=== PATIENT | female | born 2000 | race Caucasian/White ===

== ENCOUNTER 2024-06-10 18:16 | Inpatient (IN) ==
[2024-06-10] MEDS: Lactated Ringers 1000 ml BAG 1,000 ML IV ONE ×2 (19:27→23:11)
[2024-06-10 19:28] LABS: Hematocrit 52.8 % (35-45); Hemoglobin 16.9 g/dL (11.5-14.3); Mean Corpuscular Volume 87.6 fL (80-97); Mean Platelet Volume 9.4 fL (7.5-11.2); Platelet Count 348 10^3/uL (150-450); Red Blood Count 6.03 10^6/uL (3.63-4.92); Red Cell Distribution Width 15.4 % (12-17); White Blood Count 19.3 10^3/uL (3.8-11.8)
[2024-06-10 19:33] LABS: INR 0.95 (0.85-1.14)
[2024-06-10 19:36] LABS: Urine Appearance Clear; Urine Bacteria 1+ /HPF (Absent); Urine Bilirubin Negative (Negative); Urine Blood Trace (Negative); Urine Color Colorless; Urine Glucose 4+ (>=1000 mg/dL) (Negative); Urine Ketones 4+ (Negative); Urine Nitrite Negative (Negative); Urine Protein Trace (Negative); Urine Red Blood Cell Trace(0-2/hpf) /HPF (0-Trace); Urine Squamous Epithelial Cell Present /HPF (Absent); Urine Urobilinogen Negative (Negative); Urine White Blood Cell Trace(0-5/hpf) /HPF (0-Trace)
[2024-06-10 19:55] LABS: High Sens Troponin Baseline 3 pg/mL (<15)
[2024-06-10 19:57] LABS: Urine Benzodiazepine Screen None Detected (None Detect); Urine Cannabinoids Screen None Detected (None Detect); Urine Opiates Screen None Detected (None Detect)
[2024-06-10 20:04] LABS: ALT 19 U/L (7-52); Albumin 5.5 g/dL (3.5-5.7); Albumin/Globulin Ratio 1.8 (1-3); Alkaline Phosphatase 119 U/L (35-149); Anion Gap 24 mmol/L (2-16); Blood Urea Nitrogen 14 mg/dL (6-24); CO2 Carbon Dioxide 7 mmol/L (22-32); Calcium 10.5 mg/dL (8.6-10.3); Chloride 97 mmol/L (101-111); Creatinine, Serum 1.08 mg/dL (0.51-0.95); Globulin 3.1 g/dL (2-4); Glucose 738 mg/dL (70-100); Magnesium 2.4 mg/dL (1.9-2.7); Sodium 128 mmol/L (135-145); Total Bilirubin 0.4 mg/dL (0.2-1.0); Total Protein 8.6 g/dL (6.4-8.9); eGFR CKD-EPI 74.5 (>60)
[2024-06-10 20:14] LABS: HCG Pregnancy < 0.60 mIU/mL
[2024-06-10 20:15] LABS: TSH Ultra Thyroid Stim Horm 0.58 mcIU/mL (0.34-5.60)
[2024-06-10 20:23] LABS: ABS Basophils 0.1 10^3/uL (0.0-0.1); ABS Lymphocytes 2.7 10^3/uL (1.0-4.8); ABS Monocytes 1.3 10^3/uL (0.0-0.9); ABS Neutrophils 15.2 10^3/uL (1.5-7.6); ABS Nucleated RBC 0.02 10^3/ul; Anisocytosis 1+; Eosinophil % 0.1 %; Lymphocyte % 14.1 %; Nucleated Red Blood Cells % 0.1 %/100WBC (0.0-0.8); Polychromasia 1+
[2024-06-10 21:04] LABS: HIV 4th Generation Nonreactive (Nonreactive)
[2024-06-10 21:04] LABS: High Sensitivity Troponin 1 Hr 3 pg/mL (<15)
[2024-06-10] MEDS ORDERED: Dextrose 50% Syringe 50 ml 25 GM/50 ML SYRINGE IV PUSH PRN (21:16)
[2024-06-10] MEDS: Insulin Infusion 100unit/100mL 100 UNIT/100 ML BAG IV SCH (22:12)
[2024-06-10] MEDS: Lactated Ringers 1000 ml BAG 1,000 ML IV SCH (22:13)
[2024-06-10 23:30] LABS: Glucose Confirmatory 418 mg/dL (70-100)
[2024-06-10] MEDS ORDERED: Enoxaparin 40 MG/0.4 ML SYR SUBCUT SCH (23:45)
[2024-06-11] LABS: Blood Urea Nitrogen 7 mg/dL (6-24); CO2 Carbon Dioxide < 7 mmol/L (22-32); Calcium 6.9 mg/dL (8.6-10.3); Chloride 107 mmol/L (101-111); Creatinine, Serum < 0.30 mg/dL (0.51-0.95); Glucose 259 mg/dL (70-100); Potassium 3.7 mmol/L (3.5-5.0); Sodium 133 mmol/L (135-145); eGFR CKD-EPI 153.7 (>60)
[2024-06-11] MEDS: Enoxaparin 30 MG/0.3 ML SYR SUBCUT SCH (00:24)
[2024-06-11] MEDS ORDERED: D5W 1/4 NS 20 Meq KCL 1000 ml 1,000 ML IV SCH (01:00)
[2024-06-11] MEDS: Potassium Chloride IV 20 MEQ in Lactated Ringers 1000 ml BAG 1,000 ML IVPB SCH ×2 (01:10→10:35)
[2024-06-11 02:39] LABS: Anion Gap 18 mmol/L (2-16); Blood Urea Nitrogen 10 mg/dL (6-24); CO2 Carbon Dioxide 7 mmol/L (22-32); Calcium 9.2 mg/dL (8.6-10.3); Chloride 109 mmol/L (101-111); Creatinine, Serum 0.65 mg/dL (0.51-0.95); Glucose 311 mg/dL (70-100); Magnesium 1.9 mg/dL (1.9-2.7); Sodium 134 mmol/L (135-145); eGFR CKD-EPI 127.6 (>60)
[2024-06-11 04:13] LABS: Potassium, Whole Blood 3.3 mmol/L (3.4-4.5)
[2024-06-11] MEDS: D5W 1/4 NS 20 Meq KCL 1000 ml 1,000 ML IV PRN (04:24)
[2024-06-11 05:06] LABS: CO2 Carbon Dioxide < 7 mmol/L (22-32)
[2024-06-11 05:11] LABS: Blood Urea Nitrogen 9 mg/dL (6-24); Calcium 9.2 mg/dL (8.6-10.3); Chloride 108 mmol/L (101-111); Creatinine, Serum 0.68 mg/dL (0.51-0.95); Glucose 288 mg/dL (70-100); Magnesium 1.9 mg/dL (1.9-2.7); Sodium 137 mmol/L (135-145); eGFR CKD-EPI 126.2 (>60)
[2024-06-11 05:16] LABS: ABS Basophils 0.1 10^3/uL (0.0-0.1); ABS Lymphocytes 2.7 10^3/uL (1.0-4.8); ABS Monocytes 1.5 10^3/uL (0.0-0.9); ABS Neutrophils 12.9 10^3/uL (1.5-7.6); ABS Nucleated RBC 0.01 10^3/ul; Eosinophil % 0.2 %; Hematocrit 39.5 % (35-45); Hemoglobin 13.5 g/dL (11.5-14.3); Lymphocyte % 15.5 %; Mean Corpuscular Hemoglobin 28.2 pg (27-33); Mean Corpuscular Hgb Conc 34.1 g/dL (31-36); Mean Corpuscular Volume 82.7 fL (80-97); Mean Platelet Volume 8.6 fL (7.5-11.2); Nucleated Red Blood Cells % 0.1 %/100WBC (0.0-0.8); Platelet Count 196 10^3/uL (150-450); Red Blood Count 4.77 10^6/uL (3.63-4.92); Red Cell Distribution Width 14.6 % (12-17); White Blood Count 17.2 10^3/uL (3.8-11.8)
[2024-06-11] MEDS: Potassium Chlor 20 meq TAB.ER PO ONE ×2 (05:56→09:19)
[2024-06-11 06:24] LABS: Venous Bicarbonate HCO3 12.2 mmol/L (24-28)
[2024-06-11 07:23] LABS: Potassium Redraw 2.9 mmol/L (3.5-5.0)
[2024-06-11] MEDS: Potassium & Sodium Phos 250 mg = 1 PACKET PO ONE ×2 (09:19→17:17)
[2024-06-11 09:26] LABS: Anion Gap 11 mmol/L (2-16); Blood Urea Nitrogen 7 mg/dL (6-24); CO2 Carbon Dioxide 12 mmol/L (22-32); Calcium 8.4 mg/dL (8.6-10.3); Chloride 109 mmol/L (101-111); Creatinine, Serum 0.59 mg/dL (0.51-0.95); Glucose 275 mg/dL (70-100); Magnesium 1.6 mg/dL (1.9-2.7); Phosphorus < 1.0 mg/dL (2.5-5.0); Potassium 3.1 mmol/L (3.5-5.0); Sodium 132 mmol/L (135-145); eGFR CKD-EPI 130.6 (>60)
[2024-06-11] MEDS: Insulin GLARGINE 100 un/ml 10 ml VIAL SUBCUT ONE (11:28)
[2024-06-11] MEDS: Potassium Phosphate IV 15 MMOL in NS 0.9% 250 ml 250 ML IVPB ONE (11:28)
[2024-06-11] MEDS: Magnesium Sulf 4 GM/100 ML IV 4,000 MG/100 ML BAG IVPB ONE (11:47)
[2024-06-11 12:21] LABS: Creatinine, Serum 0.54 mg/dL (0.51-0.95); Magnesium 1.6 mg/dL (1.9-2.7); Potassium 3.7 mmol/L (3.5-5.0); eGFR CKD-EPI 133.4 (>60)
[2024-06-11 16:15] LABS: Calcium 7.4 mg/dL (8.6-10.3); Creatinine, Serum 0.64 mg/dL (0.51-0.95); Magnesium 3.3 mg/dL (1.9-2.7); Phosphorus 1.9 mg/dL (2.5-5.0); Potassium 3.6 mmol/L (3.5-5.0); eGFR CKD-EPI 128.1 (>60)
[2024-06-11] MEDS ORDERED: Dextrose 50% Syringe 50 ml 25 GM/50 ML SYRINGE IV PUSH PRN (16:39)
[2024-06-11 21:51] LABS: Calcium 7.8 mg/dL (8.6-10.3); Creatinine, Serum 0.53 mg/dL (0.51-0.95); Magnesium 2.2 mg/dL (1.9-2.7); Phosphorus 1.1 mg/dL (2.5-5.0); Potassium 3.2 mmol/L (3.5-5.0)
[2024-06-11] MEDS: Potassium Chloride LIQUID 20 MEQ/15 ML LIQUID PO ONE (22:51)
[2024-06-11] MEDS: Sodium Phosphate IV 15 MMOL in NS 0.9% 250 ml 250 ML IV ONE (22:52)
[2024-06-12 05:49] LABS: ABS Eosinophils 0.1 10^3/uL (0.0-0.5); ABS Lymphocytes 1.9 10^3/uL (1.0-4.8); ABS Monocytes 0.5 10^3/uL (0.0-0.9); ABS Neutrophils 3.2 10^3/uL (1.5-7.6); Eosinophil % 1.6 %; Hemoglobin 11.2 g/dL (11.5-14.3); Lymphocyte % 33.4 %; Mean Corpuscular Hgb Conc 35.1 g/dL (31-36); Mean Corpuscular Volume 82.4 fL (80-97); Mean Platelet Volume 8.4 fL (7.5-11.2); Nucleated Red Blood Cells % 0.1 %/100WBC (0.0-0.8); Platelet Count 159 10^3/uL (150-450); Red Blood Count 3.88 10^6/uL (3.63-4.92); White Blood Count 5.8 10^3/uL (3.8-11.8)
[2024-06-12 06:42] LABS: Creatinine, Serum 0.47 mg/dL (0.51-0.95); Phosphorus 2.5 mg/dL (2.5-5.0); Potassium 2.9 mmol/L (3.5-5.0)
[2024-06-12 06:52] LABS: T4, Total 8.27 mcg/dL (6.09-12.23)
[2024-06-12 06:57] LABS: Free T3 2.41 pg/mL (2.5-3.9)
[2024-06-12] MEDS: KCL 20 MEQ/100 ML IVPREMIX 20 MEQ/100 ML BAG IV SCH (07:24)
[2024-06-12] MEDS: Potassium Chlor 20 meq TAB.ER PO SCH (08:09)
[2024-06-12 10:50] LABS: Albumin 3.3 g/dL (3.5-5.7); Albumin/Globulin Ratio 1.8 (1-3); Direct Bilirubin 0.1 mg/dL (0.03-0.18); Globulin 1.8 g/dL (2-4); Indirect Bilirubin 0.5 mg/dL (0.3-1.0); Total Bilirubin 0.6 mg/dL (0.2-1.0); Total Protein 5.1 g/dL (6.4-8.9)
[2024-06-12] MEDS: Insulin GLARGINE 100 un/ml 10 ml VIAL SUBCUT ONE (10:59)
[2024-06-12 13:25] LABS: Calcium 8.3 mg/dL (8.6-10.3); Creatinine, Serum 0.65 mg/dL (0.51-0.95); Potassium 3.2 mmol/L (3.5-5.0); eGFR CKD-EPI 127.6 (>60)
[2024-06-12] MEDS: Potassium Chlor 20 meq TAB.ER PO ONE (16:22)
[2024-06-13] MEDS: Insulin GLARGINE 100 un/ml 10 ml VIAL SUBCUT SCH (08:16)
[2024-06-13 08:54] LABS: Calcium 8.5 mg/dL (8.6-10.3); Creatinine, Serum 0.44 mg/dL (0.51-0.95); Magnesium 2.1 mg/dL (1.9-2.7); Potassium 3.2 mmol/L (3.5-5.0); eGFR CKD-EPI 140.2 (>60)
[2024-06-13] MEDS: KCL 10 MEQ/50 ML IVPREMIX 10 MEQ/50 ML BAG IV SCH (10:37)
[2024-06-13] MEDS: Potassium EFFERVES 25 meq TAB PO ONE (10:37)
[2024-06-13] MEDS ORDERED: Dextrose 50% Syringe 50 ml 25 GM/50 ML SYRINGE IV PUSH PRN (11:35)
[2024-06-13 14:05] VITALS: BP 109/68
== END 2024-06-13 16:00 | disposition home or self-care (01) | DRG 637 ==
LOC: ED 18:16 → EDHOLD 20:36 → SUATTDRO 20:36 → ICU 21:15 → MED 06-12 17:15
PROVIDERS: ADMIT Internal Medicine; ATTEND Internal Medicine Pulmonary Disease